=== PATIENT | male | born 1995 | race Caucasian/White ===

== ENCOUNTER 2017-09-14 16:09 | Inpatient (IN) | payer MEDICAID, SELFPAY ==
--- NOTE | 2017-09-14 16:09 | DT_ITS ---
This patient was seen during an EMR downtime September 17, 2017 - September 24, 2017. This patient may have a combination of paper and electronic documentation or all paper documentation. All documentation is viewable within the e-chart portion of [employer] for each patient visit.
[2017-09-14 16:10] VITALS: BP 137/71; PULSE 98; RESP 16; TEMP 36.6
[2017-09-14 16:25] VITALS: BMI 23.1
[2017-09-14 16:27] VITALS: BP 137/71; PULSE 98; RESP 16; TEMP 36.6; O2SAT 97
--- NOTE | 2017-09-14 16:39 | PCM.HP.STD ---
Problem List (1) Acute opioid withdrawal Status: Acute (2) Drug abuse Status: Chronic (3) Hepatitis C Status: Chronic History of Present Illness Date of Admission: 09/14/17 Chief Complaint: Opioid withdrawal. The patient is a 22 year old M with past medical history as mentioned above presented to the [facility] office requesting admission for opiate withdrawal for medical stabilization. Patient has been using heroin both IV and snorting almost every day over the last 7 years and his last dose was this morning. His presenting symptoms was mainly cold chills that started today, involving the whole body, more on both legs, associated with restlessness and anxiety as well as nausea and without aggravating or relieving factors. He reported associated significant nausea without vomiting. He reported mild abdominal discomfort. Denied diarrhea. Denied fever chills. Denied chest pain or shortness of breath. At this time, his vital signs are stable. He was a direct admit and there is no blood work done at this time. He is being admitted for acute opioid withdrawal for medical stabilization. Past Medical History Past Medical History (Chronic Problems): Chronic Problems Drug abuse (Chronic) Hepatitis C (Chronic) Allergies No Known Allergies Allergy (Verified 09/14/17 16:33) Surgical History: no surgical history Psychiatric History: No pertinent psych hx Smoking Status: Current every day smoker Tobacco Use: Cigarettes Alcohol: None Drugs: Heroin - *Family History Maternal History Items: No pertinent history Paternal History Items: No pertinent history Review of Systems Constitutional: Reports: Anorexia, Malaise. Denies: Chills, Fever, Weakness Eyes: Denies: Blurred vision, Double vision, Drainage, Redness HEENT: Denies: Difficulty Hearing, Ear Pain, Eye Pain, Nasal Congestion, Sore Throat Cardiovascular: Denies: Chest Pain, Chest Pressure, Heaviness, Light Headedness, Palpitations, Syncope Respiratory: Denies: Cough, Pleuritic Pain, Shortness of Breath, Sputum production, Wheezing Gastrointestinal: Reports: Nausea. Denies: Abdominal Pain, Constipation, Diarrhea, Vomiting Genitourinary: Denies: Dysuria, Frequency, Hematuria Musculoskeletal: Reports: Muscle pain. Denies: Arm Pain, Back Pain Skin: Denies: Dryness, Rash Neurological: Denies: Balance problems, Double vision, Change in Speech, Slurred speech, Focal weakness, Incoordination, Numbness, Tingling Psychiatric: Denies: Anxiety, Depression Endocrine: Denies: Change in Body Habitus, Polydipsia VTE Information - Inpt Only VTE Present on Admission: No VTE Mechan Device Prophylaxis: None VTE Pharm Prophylaxis ordered?: No Patient Problems: Active and Suspected Problems Acute opioid withdrawal (Acute) - Physical Exam General: Alert, Oriented x3, Cooperative, - - Anxious, restless. HEENT: Atraumatic, PERRLA, EOMI, Normocephalic Oral: Moist Mucosa, No Gingival or Mucosal Lesions/ Ulcerations Neck: Supple, No JVD, Negative Carotid Bruits, Trachea Midline, Thyroid Normal Size and Texture Lungs: Clear to auscultation, Normal air movement, No rhonchi, No wheeze, No rales Cardiovascular: Regular rate, Regular Rhythm, Normal S1, Normal S2, No murmurs Abdomen: Bowel Sounds Present, Soft, Non Tender, Non-Distended, No Hepato-splenomegaly Extremities: No clubbing, No cyanosis, No edema Skin: No rashes, No breakdown Lymphatic: No Cervical, Supraclavicular, or Inguinal Adenopathy Neurological: Cranial nerves II-XII grossly intact, Motor Exam 5/5 strength throughout Psych/Mental Status: Normal Affect, Anxious, Alert and oriented to time, place, person, mood and affect Vital Signs Temp Pulse Resp BP Pulse Ox 97.9 F 98 16 137/71 H 97 09/14/17 16:27 09/14/17 16:27 09/14/17 16:27 09/14/17 16:27 09/14/17 16:27 Oxygen Delivery Method Room Air Weight: 180 lb Body Mass Index (BMI) 23.1 Assessment/Plan All Active Problems Acute opioid withdrawal (Acute) This is a 22 years old male patient admitted because of symptoms of cold chills, anxiety, restlessness and intractable nausea in context of history of using IV heroin as well as snorting heroin and he is being admitted for acute opioid withdrawal for medical stabilization. #1 acute opioid withdrawal: Patient has been using both IV heroin and snorting it for the last 7 years. Last dose was this morning. At this time, vital signs are stable. Plan: Admit to [facility] floor, regular diet, stat CBC and CMP, blood alcohol level, urine drug screen, pro time and INR, serum lipase, initiate [facility] protocol with tapering course of Subutex, as needed Tylenol, Catapres, Bentyl, Vistaril, methocarbamol, Zofran, Requip and Seroquel. #2 hepatitis C: Chronic, never been treated for it. Will check his LFT and pro time as well as INR. #3 drug abuse: Plan as above. He denies use of other recreational drugs apart from heroin. #4 tobacco abuse: NicoDerm patch 20 mg daily. #5 DVT prophylaxis: Low risk patient, no prophylaxis indicated. This note was generated with [employer] dictation software. It may contain incorrect words, spelling, and punctuation that were not noted in checking the note before signing. Code Visit Inpatient E&M: 31166 Init Hosp L2
--- NOTE | 2017-09-14 16:46 | HP.PCM_ITS ---
Problem List (1) Acute opioid withdrawal Status: Acute (2) Drug abuse Status: Chronic (3) Hepatitis C Status: Chronic History of Present Illness Date of Admission: 09/14/17 Chief Complaint: Opioid withdrawal. The patient is a 22 year old M with past medical history as mentioned above presented to the [facility] office requesting admission for opiate withdrawal for medical stabilization. Patient has been using heroin both IV and snorting almost every day over the last 7 years and his last dose was this morning. His presenting symptoms was mainly cold chills that started today, involving the whole body, more on both legs, associated with restlessness and anxiety as well as nausea and without aggravating or relieving factors. He reported associated significant nausea without vomiting. He reported mild abdominal discomfort. Denied diarrhea. Denied fever chills. Denied chest pain or shortness of breath. At this time, his vital signs are stable. He was a direct admit and there is no blood work done at this time. He is being admitted for acute opioid withdrawal for medical stabilization. Past Medical History Past Medical History (Chronic Problems): Chronic Problems Drug abuse (Chronic) Hepatitis C (Chronic) Allergies No Known Allergies Allergy (Verified 09/14/17 16:33) Surgical History: no surgical history Psychiatric History: No pertinent psych hx Smoking Status: Current every day smoker Tobacco Use: Cigarettes Alcohol: None Drugs: Heroin - *Family History Maternal History Items: No pertinent history Paternal History Items: No pertinent history Review of Systems Constitutional: Reports: Anorexia, Malaise. Denies: Chills, Fever, Weakness Eyes: Denies: Blurred vision, Double vision, Drainage, Redness HEENT: Denies: Difficulty Hearing, Ear Pain, Eye Pain, Nasal Congestion, Sore Throat Cardiovascular: Denies: Chest Pain, Chest Pressure, Heaviness, Light Headedness , Palpitations, Syncope Respiratory: Denies: Cough, Pleuritic Pain, Shortness of Breath, Sputum production, Wheezing Gastrointestinal: Reports: Nausea. Denies: Abdominal Pain, Constipation, Diarrhea, Vomiting Genitourinary: Denies: Dysuria, Frequency, Hematuria Musculoskeletal: Reports: Muscle pain. Denies: Arm Pain, Back Pain Skin: Denies: Dryness, Rash Neurological: Denies: Balance problems, Double vision, Change in Speech, Slurred speech, Focal weakness, Incoordination, Numbness, Tingling Psychiatric: Denies: Anxiety, Depression Endocrine: Denies: Change in Body Habitus, Polydipsia VTE Information - Inpt Only VTE Present on Admission: No VTE Mechan Device Prophylaxis: None VTE Pharm Prophylaxis ordered?: No Patient Problems: Active and Suspected Problems Acute opioid withdrawal (Acute) - Physical Exam General: Alert, Oriented x3, Cooperative, - - Anxious, restless. HEENT: Atraumatic, PERRLA, EOMI, Normocephalic Oral: Moist Mucosa, No Gingival or Mucosal Lesions/ Ulcerations Neck: Supple, No JVD, Negative Carotid Bruits, Trachea Midline, Thyroid Normal Size and Texture Lungs: Clear to auscultation, Normal air movement, No rhonchi, No wheeze, No rales Cardiovascular: Regular rate, Regular Rhythm, Normal S1, Normal S2, No murmurs Abdomen: Bowel Sounds Present, Soft, Non Tender, Non-Distended, No Hepato- splenomegaly Extremities: No clubbing, No cyanosis, No edema Skin: No rashes, No breakdown Lymphatic: No Cervical, Supraclavicular, or Inguinal Adenopathy Neurological: Cranial nerves II-XII grossly intact, Motor Exam 5/5 strength throughout Psych/Mental Status: Normal Affect, Anxious, Alert and oriented to time, place, person, mood and affect Vital Signs Temp Pulse Resp BP Pulse Ox 97.9 F 98 16 137/71 H 97 09/14/17 16:27 09/14/17 16:27 09/14/17 16:27 09/14/17 16:27 09/14/17 16:27 Oxygen Delivery Method Room Air Weight: 180 lb Body Mass Index (BMI) 23.1 Assessment/Plan All Active Problems Acute opioid withdrawal (Acute) This is a 22 years old male patient admitted because of symptoms of cold chills , anxiety, restlessness and intractable nausea in context of history of using IV heroin as well as snorting heroin and he is being admitted for acute opioid withdrawal for medical stabilization. #1 acute opioid withdrawal: Patient has been using both IV heroin and snorting it for the last 7 years. Last dose was this morning. At this time, vital signs are stable. Plan: Admit to [facility] floor, regular diet, stat CBC and CMP , blood alcohol level, urine drug screen, pro time and INR, serum lipase, initiate [facility] protocol with tapering course of Subutex, as needed Tylenol , Catapres, Bentyl, Vistaril, methocarbamol, Zofran, Requip and Seroquel. #2 hepatitis C: Chronic, never been treated for it. Will check his LFT and pro time as well as INR. #3 drug abuse: Plan as above. He denies use of other recreational drugs apart from heroin. #4 tobacco abuse: NicoDerm patch 20 mg daily. #5 DVT prophylaxis: Low risk patient, no prophylaxis indicated. This note was generated with [employer] dictation software. It may contain incorrect words, spelling, and punctuation that were not noted in checking the note before signing. Code Visit Inpatient E&M: 85903 Init Hosp L2
[2017-09-14 17:32] LABS: Absolute Lymphocyte Count 1.25 X10^3/ul (0.83-4.51); Absolute Neutrophil Count 4.6 X10^3/uL (2.0-7.7); Basophil# 0.01 X10^3/uL; Basophil% 0.2 % (0-1); Eosinophil# 0.02 X10^3/uL; Eosinophils% 0.3 % (0-5); Hematocrit 39.4 % (40-54); Hemoglobin 13.5 g/dl (13.0-16.5); Lymphocyte # 1.25 X10^3/ul (4.0); Lymphocyte % 19.7 % (19-41); Mean Corp Hgb Conc 34.3 g/gl (32-36); Mean Corpuscular Hgb 29.9 pg (27.0-32.0); Mean Corpuscular Volume 87.2 fL (80-94); Mean Platelet Vol. 9.7 fl (6.2-12.0); Monocyte# 0.42 X10^3/uL; Monocyte% 6.6 % (0-10); Neutrophil # 4.62 X10^3/uL (2.7-7.7); Platelet Count 163 K/mm3 (150-450); RBC Distribution Width CV 13.4 % (11.6-14.6); Red Blood Count 4.52 M/mm3 (4.6-6.2); White Blood Count 6.3 K/mm3 (4.4-11.0)
[2017-09-14 17:33] LABS: POSITIVE COUNT NO; POSITIVE DIFFERENTIAL NO; POSITIVE MORPHOLOGY NO
[2017-09-14] MEDS: hydrOXYzine PAM 25 MG Capsule 50 MG PO (17:33)
[2017-09-14] MEDS: Dicyclomine 10 MG Capsule 20 MG PO (17:33)
[2017-09-14] MEDS: cloNIDine HCl 0.1 MG Tablet PO (17:34)
[2017-09-14] MEDS: Buprenorphine HCl 2 MG TAB.SUBL SL (17:34)
[2017-09-14] MEDS: Ondansetron ODT 4 MG Tablet PO (17:34)
[2017-09-14] MEDS: Acetaminophen 500 MG Tablet PO (17:35)
[2017-09-14 17:45] LABS: International Normalized Ratio 1.1; Prothrombin Time (Protime)PT. 13.7 SECONDS (11.7-14.9)
[2017-09-14 17:50] LABS: Alcohol, Blood (Medical)-Serum < 3.0 mg/dL
[2017-09-14 17:57] LABS: ALB/GLOB Ratio 1.1 RATIO (0.9-2.4); AST(SGOT) 18 U/L (15-37); Alanine Aminotransfer ALT/SGPT 25 U/L (16-61); Albumin, Serum 4.1 g/dL (3.2-5.0); Alkaline Phosphatase 85 U/L (45-117); Anion Gap 6 (5-15); BUN 6 mg/dL (7-18); Calcium,Total 8.8 mg/dL (8.5-10.1); Chloride 105 mmol/L (98-107); Creatinine, Serum 0.85 mg/dL (0.70-1.30); EST Glomerular Filtration Rate 116 mL/min (>60); Est Glom Filt Rate - Afr Amer 141 mL/min (>60); Estimated Creatinine Clearance 154.76 ml/min; Globulin 3.7 g/dL (2.2-4.2); Glucose 118 mg/dL (74-106); Lipase 71 U/L (73-393); Potassium 3.8 mmol/L (3.5-5.1); Protein, Total 7.8 g/dL (6.4-8.2); Sodium Level 137 mmol/L (136-145)
[2017-09-14 18:44] LABS: Amphetamine Urine VISTA NEGATIVE (<1000 ng/mL); Barbiturate Urine VISTA NEGATIVE (< 200 ng/mL); Benzodiazepine Urine VISTA NEGATIVE (< 200 ng/mL); Cocaine Urine VISTA NEGATIVE (< 300 ng/mL); Ecstacy Urine VISTA NEGATIVE (< 500 ng/mL); Methadone Urine VISTA NEGATIVE (< 300 ng/mL); PCP Urine VISTA NEGATIVE (< 25 ng/mL); THC Urine VISTA NEGATIVE (< 50 ng/mL); Vista UDS pH Range 6
[2017-09-14] MEDS: Methocarbamol 750 MG Tablet PO (20:25)
[2017-09-14 20:28] VITALS: BP 105/65; PULSE 69; RESP 16; TEMP 36.6
[2017-09-15] VITALS (8 sets, daily range): BP systolic 87–120; BP diastolic 46–61; PULSE 58–75; RESP 14–18; TEMP 36.5–36.9; O2SAT 99–100
[2017-09-15] MEDS: hydrOXYzine PAM 25 MG Capsule 50 MG PO ×3 (01:12→22:24)
[2017-09-15] MEDS: cloNIDine HCl 0.1 MG Tablet PO ×3 (01:12→21:55)
[2017-09-15] MEDS: Buprenorphine HCl 2 MG TAB.SUBL SL ×3 (01:13→17:59)
[2017-09-15] MEDS: Dicyclomine 10 MG Capsule 20 MG PO (09:26)
[2017-09-15] MEDS: QUEtiapine 25 MG Tablet PO ×3 (09:26→21:55)
[2017-09-15] MEDS: Methocarbamol 750 MG Tablet PO ×2 (09:27→17:59)
[2017-09-15] MEDS: Pramipexole Di-HCl 0.25 MG Tablet PO (09:27)
--- NOTE | 2017-09-15 11:23 | PCM.PN.HOSP ---
Patient Problems: Active and Suspected Problems Acute opioid withdrawal (Acute) Subjective: CC: Follow-up on acute opiate withdrawal. Objective: Patient reports his symptoms have improved with the current medical stabilization protocol. He has nausea, he is irritable but he denies any back pain or abdominal pain at this time. No acute events reported overnight. Vitals/I&O's: Vital Signs Temp Pulse Resp BP Pulse Ox 97.7 F L 62 16 88/46 L 100 09/15/17 09:20 09/15/17 09:20 09/15/17 09:20 09/15/17 09:20 09/15/17 09:20 Oxygen Delivery Method Room Air Weight: 81.647 kg Body Mass Index (BMI) 23.1 Intake and Output for Last 24 Hours 09/13/17 09/14/17 09/15/17 23:59 23:59 23:59 Intake Total 300 / 300 300 / 300 Balance 300 / 300 300 / 300 General: Alert, Oriented x3 Oral: Moist Mucosa Neck: Supple, No JVD Lungs: Clear to auscultation, No wheeze Cardiovascular: Regular rate, Normal S1, Normal S2 Abdomen: Bowel Sounds Present, Soft, Non Tender Extremities: No edema Laboratory Results 09/14/17 17:11: WBC 6.3, RBC 4.52 L, Hgb 13.5, Hct 39.4 L, MCV 87.2, MCH 29.9, MCHC 34.3, RDW 13.4, RDW Differential 43.0, Plt Count 163, MPV 9.7, Immature Gran % (Auto) 0.200, Neut % (Auto) 73.0 H, Lymph % (Auto) 19.7, [place] % (Auto) 6.6, Eos % (Auto) 0.3, Baso % (Auto) 0.2, Absolute Neuts (auto) 4.6, Absolute Lymphs (auto) 1.25, Total Counted Not Reportable 09/14/17 17:11: PT 13.7, INR 1.1 09/14/17 17:11: Sodium 137, Potassium 3.8, Chloride 105, Carbon Dioxide 26.0, Anion Gap 6, BUN 6 L, Creatinine 0.85, Estim Creat Clear Calc 154.76, Est GFR (MDRD) Af Amer 141, Est GFR (MDRD) Non-Af 116, BUN/Creatinine Ratio 7.0 L, Glucose 118 H, Calcium 8.8, Total Bilirubin 0.60, AST 18, ALT 25, Alkaline Phosphatase 85, Total Protein 7.8, Albumin 4.1, Globulin 3.7, Albumin/Globulin Ratio 1.1, Lipase 71 L 09/14/17 17:11: Ethyl Alcohol < 3.0 09/14/17 18:05: Urine Opiates Screen POSITIVE H, Urine Methadone Screen NEGATIVE, Ur Barbiturates Screen NEGATIVE, Ur Phencyclidine Scrn NEGATIVE, Ur Amphetamines Screen NEGATIVE, U Methamphetamin-MDMA NEGATIVE, U Benzodiazepines Scrn NEGATIVE, Urine Cocaine Screen NEGATIVE, U Cannabinoids Screen NEGATIVE, Ur Drug Screen Comment Current Medications Acetaminophen (Tylenol) 500 mg PO Q4H PRN PRN PRN Reason: Temp > 100.4 F Last Admin: 09/14/17 17:35 Dose: 500 mg Buprenorphine HCl (Buprenorphine Hcl) 4 mg SL Q8H PAUL PRN Reason: Taper Stop: 09/17/17 21:59 Last Admin: 09/15/17 09:22 Dose: 4 mg Clonidine (Catapres) 0.1 mg PO Q2H PRN PRN PRN Reason: Hot/Cold Sweats or Anxiety Last Admin: 09/15/17 01:12 Dose: 0.1 mg Dicyclomine HCl (Bentyl) 20 mg PO Q6H PRN PRN PRN Reason: Abdomnial Discomfort Last Admin: 09/15/17 09:26 Dose: 20 mg Hydroxyzine Pamoate (Vistaril Pamoate Capsule) 50 mg PO Q6H PRN PRN PRN Reason: Mild Anxiety (score 1/3) Last Admin: 09/15/17 01:12 Dose: 50 mg Methocarbamol (Methocarbamol) 750 mg PO Q6H PRN PRN PRN Reason: Muscle Aches Last Admin: 09/15/17 09:27 Dose: 750 mg Nicotine (Nicoderm Cq (Pbkc)) 21 mg TRANSDERM. DAILY PAUL Last Admin: 09/15/17 09:23 Dose: 21 mg Ondansetron HCl (Zofran Odt) 4 mg PO Q6H PRN PRN PRN Reason: NAUSEA Last Admin: 09/14/17 17:34 Dose: 4 mg Pramipexole Dihydrochloride (Mirapex) 0.25 mg PO Q12H PRN PRN Reason: RESTLESS LEGS Last Admin: 09/15/17 09:27 Dose: 0.25 mg Quetiapine Fumarate (Seroquel) 25 mg PO Q6H PRN PRN PRN Reason: Moderate Anxiety (score 2/3) Last Admin: 09/15/17 09:26 Dose: 25 mg Medical Necessity - Tobacco Use Smoking Status: Current every day smoker Tobacco Use: Cigarettes Assessment/Plan All Active Problems Acute opioid withdrawal (Acute) 1 acute opioid withdrawal; we will continue on current medical stabilization protocol. 2 history of hepatitis C; stable. 3 drug use disorder; the patient is recommended to follow-up as an outpatient for drug rehabilitation program. 4 . Nicotine use disorder; he is recommended to quit smoking. 5 DVT prophylaxis; early ambulation. Code Visit Inpatient E&M: 84046 Subs Hosp L2
[2017-09-16 02:05] VITALS: BP 91/48; PULSE 63; RESP 14; TEMP 36.2
[2017-09-16] MEDS: Buprenorphine HCl 2 MG TAB.SUBL SL ×3 (02:19→22:20)
[2017-09-16 06:59] VITALS: BP 102/53; PULSE 56; RESP 14; TEMP 36.4
[2017-09-16] MEDS: hydrOXYzine PAM 25 MG Capsule 50 MG PO ×2 (09:58→16:33)
[2017-09-16] MEDS: cloNIDine HCl 0.1 MG Tablet PO ×3 (09:59→22:20)
[2017-09-16 10:00] VITALS: BP 111/67; PULSE 74; RESP 18; TEMP 36.6; O2SAT 95
--- NOTE | 2017-09-16 12:32 | PCM.PN.HOSP ---
Patient Problems: Active and Suspected Problems Acute opioid withdrawal (Acute) Subjective: CC: Symptom complex of opiate withdrawal Objective: The patient reports improved symptoms today except he has significant anxiety, he is requesting an anxiety medicine. He now reports no abdominal pain, no back pain, nausea or restless legs. No acute events reported overnight. Vitals/I&O's: Vital Signs Temp Pulse Resp BP Pulse Ox 97.9 F 74 18 111/67 95 09/16/17 10:00 09/16/17 10:00 09/16/17 10:00 09/16/17 10:00 09/16/17 10:00 Oxygen Delivery Method Room Air Weight: 81.647 kg Body Mass Index (BMI) 23.1 Intake and Output for Last 24 Hours 09/14/17 09/15/17 09/16/17 23:59 23:59 23:59 Intake Total 300 / 300 300 / 300 540 / 540 Balance 300 / 300 300 / 300 540 / 540 General: Alert, Oriented x3 HEENT: Atraumatic Oral: Moist Mucosa Neck: Supple, No JVD Lungs: Clear to auscultation Cardiovascular: Regular rate, Normal S1, Normal S2 Abdomen: Bowel Sounds Present, Non Tender Extremities: No edema Neurological: Cranial nerves II-XII grossly intact, Motor Exam 5/5 strength throughout Current Medications Acetaminophen (Tylenol) 500 mg PO Q4H PRN PRN PRN Reason: Temp > 100.4 F Last Admin: 09/14/17 17:35 Dose: 500 mg Buprenorphine HCl (Buprenorphine Hcl) 2 mg SL Q12H PAUL PRN Reason: Taper Stop: 09/17/17 21:59 Last Admin: 09/16/17 09:57 Dose: 2 mg Clonidine (Catapres) 0.1 mg PO Q2H PRN PRN PRN Reason: Hot/Cold Sweats or Anxiety Last Admin: 09/16/17 09:59 Dose: 0.1 mg Dicyclomine HCl (Bentyl) 20 mg PO Q6H PRN PRN PRN Reason: Abdomnial Discomfort Last Admin: 09/15/17 09:26 Dose: 20 mg Hydroxyzine Pamoate (Vistaril Pamoate Capsule) 50 mg PO Q6H PRN PRN PRN Reason: Mild Anxiety (score 1/3) Last Admin: 09/16/17 09:58 Dose: 50 mg Methocarbamol (Methocarbamol) 750 mg PO Q6H PRN PRN PRN Reason: Muscle Aches Last Admin: 09/15/17 17:59 Dose: 750 mg Nicotine (Nicoderm Cq (Pbkc)) 21 mg TRANSDERM. DAILY PAUL Last Admin: 09/16/17 09:58 Dose: 21 mg Nicotine Polacrilex ([place]ugby Nicotine (Pbkc)) 4 mg PO Q2H PRN PRN PRN Reason: Nicotine Craving Last Admin: 09/16/17 09:58 Dose: 4 mg Ondansetron HCl (Zofran Odt) 4 mg PO Q6H PRN PRN PRN Reason: NAUSEA Last Admin: 09/14/17 17:34 Dose: 4 mg Pramipexole Dihydrochloride (Mirapex) 0.25 mg PO Q12H PRN PRN Reason: RESTLESS LEGS Last Admin: 09/15/17 09:27 Dose: 0.25 mg Quetiapine Fumarate (Seroquel) 25 mg PO Q6H PRN PRN PRN Reason: Moderate Anxiety (score 2/3) Last Admin: 09/15/17 21:55 Dose: 25 mg Medical Necessity - Tobacco Use Smoking Status: Current every day smoker Tobacco Use: Cigarettes Assessment/Plan All Active Problems Acute opioid withdrawal (Acute) This is a 22-year-old male with history of heroin use disorder presented with symptom complex of opiate withdrawal, he was placed on the [facility] opiate withdrawal protocol for medical stabilization, his symptoms have improved, reports significant anxiety today and is oxygen for an anxiety medicine. 1 acute opioid withdrawal; symptomatic improvement with current medical stabilization protocol. 2 history of hepatitis C; stable. He is advised to avoid potential hepatotoxic agents. 3 drug use disorder; the patient is recommended to follow-up as an outpatient for drug rehabilitation program. 4 . Nicotine use disorder; he has been offered nicotine replacement therapy. 5 DVT prophylaxis; early ambulation.
[2017-09-16 16:30] VITALS: BP 105/66; PULSE 62; RESP 18; TEMP 36.9
[2017-09-16 20:26] VITALS: BP 102/67; PULSE 74; RESP 18; TEMP 36.7
[2017-09-16] MEDS: QUEtiapine 25 MG Tablet PO (22:20)
[2017-09-16 22:21] VITALS: BP 122/76; PULSE 75; RESP 18; TEMP 37.1; O2SAT 100
== END 2017-09-17 10:11 | disposition home or self-care (01) | DRG 434 ==
PROVIDERS: Admitting Provider Hospitalist; Family Provider Family Medicine; PCP Family Medicine; Visit Provider Internal Medicine
DX: F11.23 Opioid dependence with withdrawal (principal); B18.2 Chronic viral hepatitis C; F17.210 Nicotine dependence, cigarettes, uncomplicated
CPT/HCPCS: 80053; 80307; 80320; 83690; 85025; 85610; G0480

== ENCOUNTER 2022-01-01 18:47 | Observation (INO) | payer MEDICAID, SELFPAY ==
[2022-01-01 18:48] VITALS: BP 108/38; PULSE 85; RESP 16; TEMP 36.4; O2SAT 96; BMI 28.2
--- NOTE | 2022-01-01 18:57 | EDS_ITS ---
HPI History of Present Illness Chief Complaint: Substance Abuse Informant: patient Narrative Narrative: Patient uses IV opiates daily, last went through detox 3 years ago and has been using regularly for around that long. States his last use was this morning, 12 hours ago or so, he is feeling anxious and malaised and wants to go through detox and get off of drugs. Does not use anything else. No recent illness or injury. Not suicidal. [facility] Medical History (Updated 01/01/22 @ 18:[address] Bruce Stevnes MD) Depression Drug abuse Hepatitis C Home Medications mirtazapine 15 mg tablet (Remeron) 15 mg PO QHS 01/01/22 [History Last Taken Unknown] Allergy/AdvReac Type Severity Reaction Status Date / Time No Known Allergies Allergy Verified 01/01/22 18:50 Family History (Updated 01/01/22 @ 20:[address] Alfred Gonsalez MD) Other Diabetes Lung cancer Surgical History (Updated 01/01/22 @ 20:[address] Alfred Gonsalez MD) H/O hand surgery Social History Smoking Status: Current every day smoker tobacco type: cigarettes substance use type: heroin and IV drugs ROS ROS ED Constitutional Constitutional ED: Reports malaise; Denies chills or fever(s) Eyes Eyes: Denies change in vision or diplopia ENT ENT ED: Denies rhinorrhea or sore throat Cardiovascular Cardiovascular: Denies chest pain or palpitations Respiratory/Chest Respiratory/Chest: Denies cough or dyspnea Gastrointestinal Gastrointestinal: Denies abdominal pain, diarrhea, nausea or vomiting Genitourinary Genitourinary ED: Denies dysuria or hematuria Musculoskeletal Musculoskeletal: Denies back pain or neck pain Integumentary Denies abscess or rash Neurologic Neurologic: Denies headache(s), paresthesias or weakness Psychiatric Psychiatric: Reports anxiety; Denies suicidal thoughts EXAM Physical Exam Const Vital Signs: 01/01/22 18:48 Temperature 97.5 F L Temperature Source Temporal Pulse Rate 85 Respiratory Rate 16 Blood Pressure 108/38 L Blood Pressure Mean 61 Pulse Ox 96 Oxygen Delivery Method Room Air Positive well nourished and well developed General Appearance ED: well developed and NAD HEENT Reports moist mucous membranes normocephalic and atraumatic Eyes PERRL and EOMs intact bilaterally Neck full ROM and supple Resp normal respiratory effort and clear to auscultation bilaterally Cardio regular rate, regular rhythm and no murmurs Rate: Negative for tachycardic GI non-tender and non-distended Auscultation: normoactive bowel sounds Palpation: soft Back/Spine no CVA tenderness General Back: other FROM Extremity normal to inspection General Extremety ED: Negative for edema, pulses abnormal or tenderness General Extremity: Negative for edema or pulses abnormal Neuro oriented x3, CN's II-XII intact bilaterally and no sensory deficits noted Sensorium / Orientation: awake and alert Motor Exam: strength 5/5 throughout Skin no rashes or lesions noted Skin Narrative: IV injection sites both upper extremities are benign without palpable cords or signs of infection. MDM MDM Lab Data Attestation: I reviewed the patient's lab results. Labs: Laboratory Results - last 24 hr 01/01/22 01/01/22 01/01/22 19:25 19:25 19:25 WBC 7.2 RBC 4.54 L Hgb 14.3 Hct 39.6 L MCV 87.2 MCH 31.5 MCHC 36.1 H RDW Std Deviation 37.8 RDW Coeff of [place] 11.8 Plt Count 183 MPV 9.9 Immature Gran % (Auto) 0.300 Neut % (Auto) 65.6 Lymph % (Auto) 22.6 [place] % (Auto) 10.0 Eos % (Auto) 1.1 Baso % (Auto) 0.4 Absolute Neuts (auto) 4.7 Absolute Lymphs (auto) 1.63 Nucleated RBC % 0 Sodium 139 Potassium 3.3 L Chloride 106 Carbon Dioxide 25.0 Anion Gap 8 BUN 8 Creatinine 0.86 Estim Creat Clear Calc 148.68 Est GFR (MDRD) Af Amer 135 Est GFR (MDRD) Non-Af 111 BUN/Creatinine Ratio 9.3 L Glucose 102 Calcium 9.2 Total Bilirubin 0.60 AST 26 ALT 40 Alkaline Phosphatase 68 Total Protein 7.1 Albumin 3.6 Globulin 3.5 Albumin/Globulin Ratio 1.0 Urine Opiates Screen Urine Methadone Screen Ur Barbiturates Screen Ur Phencyclidine Scrn Ur Amphetamines Screen MDMA (Ecstasy) Screen U Benzodiazepines Scrn Urine Cocaine Screen U Cannabinoids Screen Ur Drug Screen Comment Ethyl Alcohol < 3.0 01/01/22 19:30 WBC RBC Hgb Hct MCV MCH MCHC RDW Std Deviation RDW Coeff of [place] Plt Count MPV Immature Gran % (Auto) Neut % (Auto) Lymph % (Auto) [place] % (Auto) Eos % (Auto) Baso % (Auto) Absolute Neuts (auto) Absolute Lymphs (auto) Nucleated RBC % Sodium Potassium Chloride Carbon Dioxide Anion Gap BUN Creatinine Estim Creat Clear Calc Est GFR (MDRD) Af Amer Est GFR (MDRD) Non-Af BUN/Creatinine Ratio Glucose Calcium Total Bilirubin AST ALT Alkaline Phosphatase Total Protein Albumin Globulin Albumin/Globulin Ratio Urine Opiates Screen POSITIVE H Urine Methadone Screen NEGATIVE Ur Barbiturates Screen NEGATIVE Ur Phencyclidine Scrn NEGATIVE Ur Amphetamines Screen NEGATIVE MDMA (Ecstasy) Screen POSITIVE H U Benzodiazepines Scrn NEGATIVE Urine Cocaine Screen POSITIVE H U Cannabinoids Screen POSITIVE H Ur Drug Screen Comment Ethyl Alcohol Discharge Plan Dx/Rx/DC Orders Clinical Impression: Opiate dependence Disposition Disposition: Acute Care Hospital [facility]
[2022-01-01 19:32] LABS: Absolute Lymphocyte Count 1.63 X10^3/uL (0.83-4.51); Absolute Neutrophil Count 4.7 X10^3/uL (2.0-7.7); Basophil# 0.03 X10^3/uL; Basophil% 0.4 % (0-1); Eosinophil# 0.08 X10^3/uL; Eosinophils% 1.1 % (0-5); Hematocrit 39.6 % (40-54); Hemoglobin 14.3 g/dL (13.0-16.5); Lymphocyte # 1.63 X10^3/ul (0.83-4.51); Lymphocyte % 22.6 % (19-41); Mean Corp Hgb Conc 36.1 g/dL (32-36); Mean Corpuscular Hgb 31.5 pg (27.0-32.0); Mean Corpuscular Volume 87.2 fL (80-94); Mean Platelet Vol. 9.9 fl (6.2-12.0); Monocyte# 0.72 X10^3/uL; NRBC Flagged by Analyzer 0 % (0-5); Neutrophil # 4.74 X10^3/uL (2.7-7.7); Neutrophil % 65.6 % (47-70); Platelet Count 183 K/mm3 (150-450); RBC Distribution Width CV 11.8 % (11.6-14.6); RBC Distribution Width SD 37.8 fl (35.1-43.9); Red Blood Count 4.54 M/mm3 (4.6-6.2); White Blood Count 7.2 K/mm3 (4.4-11.0)
[2022-01-01 19:49] LABS: Alcohol, Blood (Medical)-Serum < 3.0 mg/dL
[2022-01-01 19:55] LABS: AST(SGOT) 26 U/L (15-37); Alanine Aminotransfer ALT/SGPT 40 U/L (16-61); Albumin, Serum 3.6 g/dL (3.2-5.0); Alkaline Phosphatase 68 U/L (45-117); Anion Gap 8 (5-15); BUN 8 mg/dL (7-18); BUN/Creat Ratio 9.3 RATIO (10-20); Calcium,Total 9.2 mg/dL (8.5-10.1); Chloride 106 mmol/L (98-107); Creatinine, Serum 0.86 mg/dL (0.70-1.30); EST Glomerular Filtration Rate 111 mL/min (>60); Est Glom Filt Rate - Afr Amer 135 mL/min (>60); Estimated Creatinine Clearance 148.68 ml/min; Globulin 3.5 g/dL (2.2-4.2); Glucose 102 mg/dL (74-106); Potassium 3.3 mmol/L (3.5-5.1); Protein, Total 7.1 g/dL (6.4-8.2); Sodium Level 139 mmol/L (136-145)
[2022-01-01 20:11] LABS: Amphetamine Urine VISTA NEGATIVE (<1000 ng/mL); Barbiturate Urine VISTA NEGATIVE (< 200 ng/mL); Benzodiazepine Urine VISTA NEGATIVE (< 200 ng/mL); Cocaine Urine VISTA POSITIVE (< 300 ng/mL); Ecstacy Urine VISTA POSITIVE (< 500 ng/mL); Methadone Urine VISTA NEGATIVE (< 300 ng/mL); PCP Urine VISTA NEGATIVE (< 25 ng/mL); THC Urine VISTA POSITIVE (< 50 ng/mL); Vista UDS pH Range 5
--- NOTE | 2022-01-01 20:16 | PCM.HP.STD ---
HPI - General General Date of Admission: 01/01/22 Date of Service: 01/01/22 Chief Complaint: Desire for opiate detoxification HPI Narrative BRENDON BOYKIN, is a 26 M with a significant history of IV drug use; depression; and hepatitis C who presents to the emergency department for help with opioid detoxification. On and off patient has been abusing opiates for about 14 years. He was detoxed 3 years ago. He reports that 1-1/2 months to 2 months ago he began using drugs again. His drug of choice is heroin that he shoots. Last time he shot heroin was about 12 hours before presentation. Also occasionally he has been smoking crack cocaine. Reports intentional ecstasy use about 5 to 6 years ago. He denies any withdrawal symptoms as his withdrawal symptoms typically start about 24 hours after last use. However he reports feeling anxious. He came to the emergency department with his fianc? for joint detoxification. FORMERLY [facility], [facility] Medical History Depression Drug abuse Hepatitis C Home Medications mirtazapine 15 mg tablet (Remeron) 15 mg PO QHS 01/01/22 [History Last Taken Unknown] Allergy/AdvReac Type Severity Reaction Status Date / Time No Known Allergies Allergy Verified 01/01/22 18:50 Family History Other Diabetes Lung cancer Surgical History H/O hand surgery Social History Smoking Status: Current every day smoker tobacco type: cigarettes substance use type: heroin and IV drugs ROS ROS Narrative Pertinent positives and pertinent negatives as noted in HPI. All other systems were reviewed and are negative Vital Signs Vital Signs Vital Signs: 01/01/22 18:48 Temperature 97.5 F L Temperature Source Temporal Pulse Rate 85 Respiratory Rate 16 Blood Pressure 108/38 L Blood Pressure Mean 61 Pulse Ox 96 Oxygen Delivery Method Room Air Weight Weight: 99.79 kg Body Mass Index (BMI) 28.2 Physical Exam Narrative Physical exam: General: Well-nourished, well-developed. Head: Normocephalic, atraumatic, no tenderness Eyes: Vision is grossly intact. EOMI ENT, no trauma, moist mucous membranes, no rhinorrhea Neck: Nontender, full range of motion, no spinal tenderness, deformities, step-off CVS: Regular rate and rhythm. S1-S2 present. No murmur, gallop or rub. Respiratory : clear to auscultation bilaterally, chest wall nontender, no wheezing Abdomen: Soft, nontender, nondistended, normal bowel sounds, no masses : Deferred Back: Nontender, no CVA tenderness, no midline spinal tenderness, deformities, step-offs Extremities: Nontender full range of motion, no trauma Skin: Normal color, no trauma, abrasions Neuro: Alert, oriented, cranial nerves II through XII grossly intact. Psychiatry: Normal mood. Normal affect. Not depressed. Not anxious. Results Lab / Micro Data Result Diagrams: 01/01/22 19:25 01/01/22 19:25 Labs: Laboratory Results - last 24 hr 01/01/22 19:25: WBC 7.2, RBC 4.54 L, Hgb 14.3, Hct 39.6 L, MCV 87.2, MCH 31.5, MCHC 36.1 H, RDW Std Deviation 37.8, RDW Coeff of Raven 11.8, Plt Count 183, MPV 9.9, Immature Gran % (Auto) 0.300, Neut % (Auto) 65.6, Lymph % (Auto) 22.6, [place] % (Auto) 10.0, Eos % (Auto) 1.1, Baso % (Auto) 0.4, Absolute Neuts (auto) 4.7, Absolute Lymphs (auto) 1.63, Nucleated RBC % 0 01/01/22 19:25: Sodium 139, Potassium 3.3 L, Chloride 106, Carbon Dioxide 25.0, Anion Gap 8, BUN 8, Creatinine 0.86, Estim Creat Clear Calc 148.68, Est GFR (MDRD) Af Amer 135, Est GFR (MDRD) Non-Af 111, BUN/Creatinine Ratio 9.3 L, Glucose 102, Calcium 9.2, Total Bilirubin 0.60, AST 26, ALT 40, Alkaline Phosphatase 68, Total Protein 7.1, Albumin 3.6, Globulin 3.5, Albumin/Globulin Ratio 1.0 01/01/22 19:25: Ethyl Alcohol < 3.0 01/01/22 19:30: Urine Opiates Screen POSITIVE H, Urine Methadone Screen NEGATIVE, Ur Barbiturates Screen NEGATIVE, Ur Phencyclidine Scrn NEGATIVE, Ur Amphetamines Screen NEGATIVE, MDMA (Ecstasy) Screen POSITIVE H, U Benzodiazepines Scrn NEGATIVE, Urine Cocaine Screen POSITIVE H, U Cannabinoids Screen POSITIVE H, Ur Drug Screen Comment Assessment & Plan Assessment/Plan (1) Opiate dependence: PLAN: Plan Opioid dependence and withdrawal Urine toxicology positive for opiates; ecstasy; cocaine and cannabinoids. Patient be started on Subutex and other adjunctive medications: Gabapentin as needed; dicyclomine as needed; Vistaril as needed; methocarbamol as needed; clonidine as needed; Imodium as needed; trazodone as needed and Zofran as needed. Monitor COWS and CINA score Tobacco abuse Counseled Nicotine patch and nicotine gum prescribed. Cocaine abuse;/cannabis abuse/MDMA abuse Counseled Hypokalemia Potassium 3.3 on presentation. Replace. Trend BMP. DVT prophylaxis Low risk Encourage to ambulate Charges/Coding Visit Charges Inpatient E&M: 40374 Init Hosp L2
[2022-01-01 21:48] VITALS: BP 115/55; PULSE 70; RESP 16; TEMP 36.6; O2SAT 94
[2022-01-01 22:13] VITALS: BP 125/80; PULSE 69; RESP 16; TEMP 36.4; O2SAT 97
[2022-01-01 22:14] VITALS: BMI 27.9
[2022-01-01] MEDS: Mirtazapine 15 MG Tablet PO (22:31)
[2022-01-01] MEDS: Potassium Chloride Oral Tablet 20 MEQ 40 MEQ PO (22:36)
[2022-01-01] MEDS: hydrOXYzine PAM 25 MG Capsule 50 MG PO (22:37)
[2022-01-01 23:48] VITALS: PULSE 66; RESP 13; O2SAT 96
[2022-01-02 05:25] VITALS: BP 121/83; PULSE 68; RESP 16; TEMP 36.9; O2SAT 100
[2022-01-02 06:06] LABS: Anion Gap 5 (5-15); BUN 6 mg/dL (7-18); BUN/Creat Ratio 6.8 RATIO (10-20); Calcium,Total 8.9 mg/dL (8.5-10.1); Chloride 105 mmol/L (98-107); Creatinine, Serum 0.88 mg/dL (0.70-1.30); EST Glomerular Filtration Rate 108 mL/min (>60); Est Glom Filt Rate - Afr Amer 131 mL/min (>60); Glucose 108 mg/dL (74-106); Potassium 3.5 mmol/L (3.5-5.1); Sodium Level 142 mmol/L (136-145)
--- NOTE | 2022-01-02 07:40 | PN.HOSP_ITS ---
Subjective Subjective Follow-up for acute opioid withdrawal syndrome. Patient is states he uses IV opioid, heroin. U tox positive of ecstasy opioids and cannabis. Denies use ecstasy and crack cocaine but this might be contamination of opioids/cocktail. Mild muscle cramps. Denies hallucination. He knows that it might have more physical and psychological symptoms in the afternoon Objective Data Objective Data Vital Signs: Vital Signs Temp Pulse Resp BP Pulse Ox O2 Del Method 98.4 F 68 16 121/83 H 100 Room Air 01/02/22 05:25 01/02/22 05:25 01/02/22 05:25 01/02/22 05:25 01/02/22 05:25 01/02/22 05:25 Oxygen Delivery Method Room Air Weight: 217 lb 9.54 oz Body Mass Index (BMI) 27.9 Intake & Output: Intake and Output for Last 24 Hours 12/31/21 01/01/22 01/02/22 23:59 23:59 23:59 Intake Total 400 / 400 Balance 400 / 400 Lab / Micro Data Result Diagrams: 01/01/22 19:25 01/02/22 05:25 Labs: Laboratory Results - last 24 hr 01/01/22 19:25: WBC 7.2, RBC 4.54 L, Hgb 14.3, Hct 39.6 L, MCV 87.2, MCH 31.5, MCHC 36.1 H, RDW Std Deviation 37.8, RDW Coeff of Raven 11.8, Plt Count 183, MPV 9.9, Immature Gran % (Auto) 0.300, Neut % (Auto) 65.6, Lymph % (Auto) 22.6, [place] % (Auto) 10.0, Eos % (Auto) 1.1, Baso % (Auto) 0.4, Absolute Neuts (auto) 4.7, Absolute Lymphs (auto) 1.63, Nucleated RBC % 0 01/01/22 19:25: Sodium 139, Potassium 3.3 L, Chloride 106, Carbon Dioxide 25.0, Anion Gap 8, BUN 8, Creatinine 0.86, Estim Creat Clear Calc 148.68, Est GFR (MDRD) Af Amer 135, Est GFR (MDRD) Non-Af 111, BUN/Creatinine Ratio 9.3 L, Glucose 102, Calcium 9.2, Total Bilirubin 0.60, AST 26, ALT 40, Alkaline Phosphatase 68, Total Protein 7.1, Albumin 3.6, Globulin 3.5, Albumin/Globulin Ratio 1.0 01/01/22 19:25: Ethyl Alcohol < 3.0 01/01/22 19:30: Urine Opiates Screen POSITIVE H, Urine Methadone Screen NEGATIVE, Ur Barbiturates Screen NEGATIVE, Ur Phencyclidine Scrn NEGATIVE, Ur Amphetamines Screen NEGATIVE, MDMA (Ecstasy) Screen POSITIVE H, U Benzodiazepines Scrn NEGATIVE, Urine Cocaine Screen POSITIVE H, U Cannabinoids Screen POSITIVE H, Ur Drug Screen Comment 01/02/22 05:25: Sodium 142, Potassium 3.5, Chloride 105, Carbon Dioxide 32.0, Anion Gap 5, BUN 6 L, Creatinine 0.88, Estim Creat Clear Calc 145.30, Est GFR ( MDRD) Af Amer 131, Est GFR (MDRD) Non-Af 108, BUN/Creatinine Ratio 6.8 L, Glucose 108 H, Calcium 8.9 Physical Exam Narrative Seen and examined. Patient had abscess in the past but denies history of deep bone and joint infection, osteomyelitis or endocarditis. General: Alert, Oriented x3, Cooperative HEENT: Atraumatic, PERRLA, EOMI, Normocephalic Oral: No Gingival or Mucosal Lesions/ Ulcerations Neck: Supple, No JVD, Negative Carotid Bruits Lungs: Air entry diminished in bilateral lung bases. No crepitation/rhonchi Cardiovascular: Regular rate, Regular Rhythm, Normal S1, Normal S2, No murmurs Abdomen: Bowel Sounds Present, Soft, Non Tender, Non-Distended : No renal angle tenderness. No suprapubic tenderness. Extremities: No edema, Capillary Refill Less than 3 Seconds Skin: IV needle monzon on forearm and wrist. Musculoskeletal: No Tenderness to Palpation of Joints or Extremities Neurological: Cranial nerves II-XII grossly intact, DTR 2+/4 and Symmetrical, Neuro grossly intact Psych/Mental Status: Normal Affect, Appropriate. Assessment & Plan Assessment/Plan (1) Opiate dependence: PLAN: Plan This 26-year-old question gentleman admitted for acute opioid alcohol withdrawal. 1. Acute opioid withdrawal syndrome with history of chronic opioid use, d ependence and tolerance: Patient is being admitted on the medical floor. U tox positive opioid, ecstasy, cocaine and cannabinoids probably he is using cocktail. Patient on buprenorphine based other adjunctive medications as needed for control of withdrawal symptoms. Monitor CINA and COWS score. 2. Chronic nicotine use/smoking abuse Counseled to quit Nicotine patch and nicotine gum prescribed. 3. Cocaine abuse;/cannabis abuse/MDMA abuse Counseled to quit 4. Hypokalemia Potassium 3.3 on presentation. Replace. Monitor BMP DVT prophylaxis Low risk Encourage to ambulate Charges/Coding Visit Charges Inpatient E&M: 46589 Subs Hosp L2
[2022-01-02 10:05] VITALS: BP 102/59; PULSE 64; RESP 12; TEMP 36.8; O2SAT 97
--- NOTE | 2022-01-02 11:05 | ADDICTION ---
This keno writer / runner met with PT to conduct ASAM, MSE, AUDIT, DUDIT assessments and to plan for d/c. PT A+Ox4 and participated actively. All assessments completed and placed in PT's chart. PT plans to f/u with [facility] for Intensive outpatient treatment services and MAT. PT did not indicate a need for transportation post d/c from [facility].
[2022-01-02 14:18] VITALS: BP 111/68; PULSE 68; RESP 14; TEMP 36.6; O2SAT 100
[2022-01-02] MEDS: hydrOXYzine PAM 25 MG Capsule 50 MG PO ×2 (14:49→21:38)
--- NOTE | 2022-01-02 15:05 | CHAPLAIN ---
Type of Pastoral Visit _x__ Initial Visit ___ Follow-up Visit ___ On-call Visit ___ General Patient Visit ___ Spiritual Assessment ___ Family Conference ___ Bereavement ___ Rapid Response ___ Code Blue ___ Other (describe below) Pastoral Care Referral From _x__ Patient ___ Family ___ Nurse ___ Physician ___ Gun Profiler ___ Chair Trimmer ___ Other (describe below) Sacrament/Intervention _x__ Active listening ___ Anointing ___ Confucianist ___ Bereavement ___ Communion _x__ Pam exploration ___ _x__ Life review _x__ Prayer ___ Reconciliation ___ Sacrament of Sick _x__ Supportive presence ___ Wedding ___ Other (describe below) Pastoral Comments patient is open to supportive presence and spiritual care; pt talks about his reason for admission and that his relapse was a disappointment about himself; pt declares desire to overcome the addiction that has resurfaced after 3 years of being clean; pt has a fiancee and a daughter that I want her to have a good childhood like mine and even better; pt states he has good support when he admits to his need; pt affirmed in admitting his need early on in relapse and of taking responsibility for his decisions; pt states some goals that he has in life; pt illustrates insights into his addictions; pt speaks of his Voodoo pam and that once I stopped going to mandaen and praying, it was only about three months to my start of using again. And I need to get back to mandaen; pt speaks of believing in God and welcomes prayer support for his recovery; pt has hopes of transferring his job to this area or finding a new job to get out of the current geography; pt welcomes prayer, presence and possible future visits of wastewater manager; pt has a plan for outpatient treatment and willing to go back to for support
[2022-01-02] MEDS: Mirtazapine 15 MG Tablet PO (21:38)
[2022-01-03 03:59] VITALS: BP 113/65; PULSE 63; RESP 16; TEMP 36.7; O2SAT 100
[2022-01-03 09:33] VITALS: BP 114/83; PULSE 85; RESP 18; TEMP 36.3; O2SAT 99
[2022-01-03] MEDS: Dicyclomine 10 MG Capsule 20 MG PO ×2 (09:38→22:29)
[2022-01-03] MEDS: hydrOXYzine PAM 25 MG Capsule 50 MG PO ×2 (09:38→22:28)
[2022-01-03 15:34] VITALS: BP 123/72; PULSE 80; RESP 18; TEMP 36.6; O2SAT 100
[2022-01-03] MEDS: Buprenorphine HCl 2 MG TAB.SUBL 4 MG SL (15:37)
[2022-01-03] MEDS: Gabapentin 300 MG Capsule PO (15:39)
[2022-01-03] MEDS: Methocarbamol 750 MG Tablet 1500 MG PO ×2 (15:40→22:28)
--- NOTE | 2022-01-03 16:27 | PN.HOSP_ITS ---
Subjective Subjective Follow-up for acute opioid withdrawal syndrome. Patient feeling worse than yesterday. Has cramps, generalized anxiety, insomnia and restlessness. Denies hallucinations. No seizure. Objective Data Objective Data Vital Signs: Vital Signs Temp Pulse Resp BP Pulse Ox O2 Del Method 97.3 F L 85 18 114/83 H 99 Room Air 01/03/22 09:33 01/03/22 09:33 01/03/22 09:33 01/03/22 09:33 01/03/22 09:33 01/03/22 09:33 Oxygen Delivery Method Room Air Weight: 217 lb 9.54 oz Body Mass Index (BMI) 27.9 Intake & Output: Intake and Output for Last 24 Hours 01/01/22 01/02/22 01/03/22 23:59 23:59 23:59 Intake Total 1000 / 1000 Balance 1000 / 1000 Medical Nutrition Assessment Dietitian: Malnutrition Criteria Met Start: 01/02/22 15:27 Freq: Status: Active Protocol: Document 01/02/22 15:27 RMA (Rec: 01/02/22 15:27 RMA [id number]) Nutrition Malnutrition Evidence of Malnutrition Exists Yes Malnutrition (severe): Social/Behavioral/ Environmental Evidenced By Suboptimal Energy Intake ( Severe),Weight Loss (Severe) Clinical Problem Chronic Disease or Condition Related Malnutrition Etiology Severe protein-calorie malnutrition in the context of social circumstance related to substance abuse and inadequate oral intake Signs/Symptoms as evidenced by ~8% wt loss and poor meeting meeting less than 50% estimated nutrition needs x past 2-3 months Status Active Problem Recommendation Dietitian Recommendations/Changes Will continue regular diet with extra 1-2 oz protein Q meal; snacks as needed. Will d/c ensure plus w/ medpass due to patient refusal . Pt prefers extra food instead of oral nutrition supplements. Lab / Micro Data Result Diagrams: 01/01/22 19:25 01/02/22 05:25 Physical Exam Narrative Seen and examined. General: Alert, Oriented x3, Cooperative HEENT: Atraumatic, PERRLA, EOMI, Normocephalic Oral: No Gingival or Mucosal Lesions/ Ulcerations Neck: Supple, No JVD, Negative Carotid Bruits Lungs: Air entry diminished in bilateral lung bases. No crepitation/rhonchi Cardiovascular: Regular rate, Regular Rhythm, Normal S1, Normal S2, No murmurs Abdomen: Bowel Sounds Present, Soft, Non Tender, Non-Distended : No renal angle tenderness. No suprapubic tenderness. Extremities: No edema, Capillary Refill Less than 3 Seconds Skin: IV needle monzon on forearm and wrist. Musculoskeletal: No Tenderness to Palpation of Joints or Extremities Neurological: Cranial nerves II-XII grossly intact, DTR 2+/4 and Symmetrical, Neuro grossly intact Psych/Mental Status: Flat affect. Restlessness. Anxiety Assessment & Plan Assessment/Plan (1) Opiate dependence: PLAN: Plan This 26-year-old question gentleman admitted for acute opioid alcohol withdrawal. 1. Acute opioid withdrawal syndrome with history of chronic opioid use, depen dence and tolerance: Patient is being admitted on the medical floor. U tox positive opioid, ecstasy, cocaine and cannabinoids probably he is using cocktail. Patient on buprenorphine based other adjunctive medications as needed for control of withdrawal symptoms. Monitor CINA and COWS score. 01/03: Continue buprenorphine. general road production manager wanted to consult. CINA score 7 2. Chronic nicotine use/cigarette smoking abuse Counseled to quit Nicotine patch and nicotine gum prescribed. 3. Cocaine abuse;/cannabis abuse/MDMA abuse Counseled to quit 4. Hypokalemia Potassium 3.3 on presentation. Replace. Monitor BMP Repeat potassium 3.5. DVT prophylaxis Low risk Encourage to ambulate Charges/Coding Visit Charges Inpatient E&M: 26124 Subs Hosp L2
[2022-01-03] MEDS: Mirtazapine 15 MG Tablet PO (22:28)
[2022-01-03 22:30] VITALS: BP 112/88; PULSE 100; RESP 18; TEMP 36.7; O2SAT 99
[2022-01-03] MEDS: Buprenorphine HCl 2 MG TAB.SUBL SL (22:30)
[2022-01-04] MEDS: cloNIDine HCl 0.1 MG Tablet PO ×2 (03:37→14:43)
[2022-01-04] MEDS: Gabapentin 300 MG Capsule PO ×2 (03:37→11:23)
[2022-01-04 03:41] VITALS: BP 117/72; PULSE 82; RESP 18; TEMP 36.8; O2SAT 98
[2022-01-04] MEDS: Buprenorphine HCl 2 MG TAB.SUBL SL ×2 (06:46→14:43)
--- NOTE | 2022-01-04 07:57 | DCINST_ITS ---
Discharge Instructions Diet Discharge Diet: No restrictions Activity May resume sexual activity in: No Restrictions Weight Bearing Status: Weight bearing as tolerated and Full weight bearing Dressing / Incision Call your doctor if you observe: Fever of 101 or Higher, Coldness, Increased Pain, Numbness or Tingling, Change in Color, Inability to urinate, Inability to have a bowel movement, Shortness of breath, Dizziness, Fainting spells, Swelling in the ankles, Chest pain, Prolonged hiccupping, Increased palpitations (irregular heartbeat), Calf discomfort and Uncontrolled pain Follow Up Care Test Results: Test results from this visit will be discussed in further detail at your follow- up appointment, if applicable. Discharge Plan Admission Admit Date/Time: 01/01/22 20:12 Primary Reason for Your Visit: Acute opioid withdrawal syndrome Attending Provider: López Fernandez Primary Care Provider: Darlin Brooks Consulting Providers: Alfred Gonsalez Instructions Additional Instructions / Restrictions: Follow-up outpatient substance use rehab as set up by 180 Discharge Orders/Prescriptions Prescriptions: New nicotine 21 mg/24 hr Patch 24 Hour 21 mg transdermal DAILY Qty: 30 0RF Continued mirtazapine [Remeron] 15 mg Tablet 15 mg PO QHS melatonin 10 mg Tablet 10 mg PO QHS Referrals / Follow Up: Darlin Brooks DO [Primary Care Provider] - Within 2 Weeks Disposition Disposition (needs filled in before D/C Order can be placed): Home, Self Care
--- NOTE | 2022-01-04 09:58 | PHA.DC.MC ---
Pharmacy Service has performed discharge medication reconciliation and counseling for this patient. 1. NICOTINE PATCH 21MG TOPICALLY DAILY The patient's discharge medication list was reviewed for discrepancies and discrepancies were resolved. Home Medications melatonin 10 mg tablet 10 mg PO QHS sleep 01/01/22 mirtazapine 15 mg tablet (Remeron) 15 mg PO QHS mood 01/01/22 nicotine 21 mg/24 hr daily transdermal patch 21 mg transdermal DAILY #30 ea 01/04/22 The patient was counseled on the following discharge medications and changes in medications for homegoing were reviewed. The Reason for Use, instructions for use, and potential side effects were reviewed for all new medications. The patient's questions regarding all of their medications were answered. The patient was able to verbally demonstrate an understanding of their discharge medications. Patient counseled by vice president pharmacyColleen.
[2022-01-04 11:28] VITALS: BP 124/80; PULSE 80; RESP 16; TEMP 37; O2SAT 98
--- NOTE | 2022-01-04 11:48 | CHAPLAIN ---
Type of Pastoral Visit ___ Initial Visit _x__ Follow-up Visit ___ On-call Visit ___ General Patient Visit ___ Spiritual Assessment ___ Family Conference ___ Bereavement ___ Rapid Response ___ Code Blue ___ Other (describe below) Pastoral Care Referral From _x__ Patient ___ Family ___ Nurse ___ Physician ___ Principal Cloud Architect ___ Instrument Checker ___ Other (describe below) Sacrament/Intervention _x__ Active listening ___ Anointing ___ Shinto ___ Bereavement ___ Communion ___ Pam exploration ___ ___ Life review ___ Prayer ___ Reconciliation ___ Sacrament of Sick ___ Supportive presence ___ Wedding ___ Other (describe below) Pastoral Comments follow up to patient; patient is uncertain if he is staying today or leaving but expresses concern for his fiancee who is also admitted and when she will be discharged; RN will assist in relaying needed information as able; pt otherwise states that he is okay and does not need anything else
[2022-01-04] MEDS: hydrOXYzine PAM 25 MG Capsule 50 MG PO (14:43)
[2022-01-04 15:33] VITALS: BP 124/77; PULSE 80; RESP 17; TEMP 36.5; O2SAT 97
--- NOTE | 2022-01-04 16:53 | PCM.DC.SUM ---
Providers Date of Admission: 01/01/22 Date of Discharge: 01/04/22 Primary Care Physician: Dr. Darlin Brooks, DO Reason For Visit: DESIRE FOR DETOXIFICATION Diagnosis Discharge Diagnosis (1) Opiate dependence: Status: Acute Code(s): F11.20 - Opioid dependence, uncomplicated Medications at Discharge Home Medications melatonin 10 mg tablet 10 mg PO QHS sleep 01/01/22 mirtazapine 15 mg tablet (Remeron) 15 mg PO QHS mood 01/01/22 nicotine 21 mg/24 hr daily transdermal patch 21 mg transdermal DAILY #30 ea 01/04/22 Hospital Course Summary of Care Provided Hospital Course: This 26-year-old question gentleman admitted for acute opioid alcohol withdrawal. 1. Acute opioid withdrawal syndrome with history of chronic opioid use, dependence and tolerance: Patient is being admitted on the medical floor. U tox positive opioid, ecstasy, cocaine and cannabinoids probably he is using cocktail. Patient on buprenorphine based other adjunctive medications as needed for control of withdrawal symptoms. Monitor CINA and COWS score. 01/03: Continue buprenorphine. receivable manager wanted to consult. CINA score 7 01/04: Cina score is 1. Patient is being discharged home. 2. Chronic nicotine use/cigarette smoking abuse Counseled to quit Nicotine patch and nicotine gum prescribed. 3. Cocaine abuse;/cannabis abuse/MDMA abuse Counseled to quit 4. Hypokalemia Potassium 3.3 on presentation. Replace. Monitor BMP Repeat potassium 3.5. DVT prophylaxis Low risk Encourage to ambulate Discharge medication reconciliation done. Discharge follow-up instructions completed. Discharge process discussed with the patient and all questions were answered to patient's satisfaction. Outpatient substance use rehab set up for tomorrow Total time spent, exact 35 minutes on discharge meds reconciliation, examination, coordination of care with nurses and ancillary staff, review of imaging and blood test and discussion with the patient on follow-up instructions. Physical Exam Narrative Seen and examined. Patient symptoms are well controlled. Recommended outpatient follow-up with 180 tomorrow General: Alert, Oriented x3, Cooperative HEENT: Atraumatic, PERRLA, EOMI, Normocephalic Oral: No Gingival or Mucosal Lesions/ Ulcerations Neck: Supple, No JVD, Negative Carotid Bruits Lungs: Air entry diminished in bilateral lung bases. No crepitation/rhonchi Cardiovascular: Regular rate, Regular Rhythm, Normal S1, Normal S2, No murmurs Abdomen: Bowel Sounds Present, Soft, Non Tender, Non-Distended : No renal angle tenderness. No suprapubic tenderness. Extremities: No edema, Capillary Refill Less than 3 Seconds Skin: IV needle monzon on forearm and wrist. Musculoskeletal: No Tenderness to Palpation of Joints or Extremities Neurological: Cranial nerves II-XII grossly intact, DTR 2+/4 and Symmetrical, Neuro grossly intact Psych/Mental Status: Flat affect. Mild anxiety Medical Records Data Medical Nutrition Assessment Dietitian: Malnutrition Criteria Met Start: 01/02/22 15:27 Freq: Status: Active Protocol: Document 01/02/22 15:27 RMA (Rec: 01/02/22 15:27 RMA [id number]) Nutrition Malnutrition Evidence of Malnutrition Exists Yes Malnutrition (severe): Social/Behavioral/ Environmental Evidenced By Suboptimal Energy Intake ( Severe),Weight Loss (Severe) Clinical Problem Chronic Disease or Condition Related Malnutrition Etiology Severe protein-calorie malnutrition in the context of social circumstance related to substance abuse and inadequate oral intake Signs/Symptoms as evidenced by ~8% wt loss and poor meeting meeting less than 50% estimated nutrition needs x past 2-3 months Status Active Problem Recommendation Dietitian Recommendations/Changes Will continue regular diet with extra 1-2 oz protein Q meal; snacks as needed. Will d/c ensure plus w/ medpass due to patient refusal . Pt prefers extra food instead of oral nutrition supplements. Weight / BMI Weight Weight: 217 lb 9.54 oz Body Mass Index (BMI) 27.9 ABG / Lab / Microbiology Data Result Diagrams: 01/01/22 19:25 01/02/22 05:25 D/C Instructions Discharge Diet: No restrictions May resume sexual activity in: No Restrictions Weight Bearing Status: Weight bearing as tolerated and Full weight bearing Call your doctor if you observe: Fever of 101 or Higher, Coldness, Increased Pain, Numbness or Tingling, Change in Color, Inability to urinate, Inability to have a bowel movement, Shortness of breath, Dizziness, Fainting spells, Swelling in the ankles, Chest pain, Prolonged hiccupping, Increased palpitations (irregular heartbeat), Calf discomfort and Uncontrolled pain Meaningful Use Info Meaningful Use Diagnoses (Choose all that apply): None applicable Discharge Plan Admission Admit Date/Time: 01/01/22 20:12 Primary Reason for Your Visit: Acute opioid withdrawal syndrome Attending Provider: López Fernandez Primary Care Provider: Darlin Brooks Consulting Providers: Alfred Gonsalez Instructions Additional Instructions / Restrictions: Follow-up outpatient substance use rehab as set up by 180 Discharge Orders/Prescriptions Prescriptions: New nicotine 21 mg/24 hr Patch 24 Hour 21 mg transdermal DAILY Qty: 30 0RF Continued mirtazapine [Remeron] 15 mg Tablet 15 mg PO QHS melatonin 10 mg Tablet 10 mg PO QHS Referrals / Follow Up: Darlin Brooks DO [Primary Care Provider] - Within 2 Weeks Disposition Disposition (needs filled in before D/C Order can be placed): Home, Self Care Charges/Coding Visit Charges Inpatient E&M: 49990 Disch Hosp
== END 2022-01-04 15:56 | disposition home or self-care (01) ==
LOC: ED 20:07 → MS3 01-02 04:32
PROVIDERS: Admitting Provider Hospitalist; Emergency Provider Emergency Medicine; PCP Family Medicine; Visit Provider Internal Medicine
DX: F11.23 Opioid dependence with withdrawal (principal); E43 Unspecified severe protein-calorie malnutrition; F14.10 Cocaine abuse, uncomplicated; F16.10 Hallucinogen abuse, uncomplicated; E87.6 Hypokalemia; F17.210 Nicotine dependence, cigarettes, uncomplicated; F12.10 Cannabis abuse, uncomplicated; Z68.27 Body mass index [BMI] 27.0-27.9, adult; Z86.19 Personal history of other infectious and parasitic diseases; F32.A Depression, unspecified; Z79.899 Other long term (current) drug therapy
CPT/HCPCS: 36415; 80048; 80053; 80307; 82077; 85025; 97802; 99283; 99406; H0012